=== PATIENT | female | born 1955 | race Caucasian/White ===

== ENCOUNTER 2023-04-14 11:08 | Day surgery (SDC) | payer BC, MEDICARE ==
[~2023-04-14 11:08] MED LIST: Lactated Ringers 1,000 ML IV SCH
[2023-04-14] MEDS ORDERED: fentaNYL 100 MCG/2 ML SDV ONE (12:23)
[2023-04-14] MEDS ORDERED: Propofol 200 MG/20 ML SDV ONE ×2 (12:23→12:53)
== END 2023-04-14 14:00 | disposition home or self-care (01) ==
LOC: VM.SDS 11:08
PROVIDERS: ATTEND Surgery
DX: Z12.11 Encounter for screening for malignant neoplasm of colon (principal); J30.9 Allergic rhinitis, unspecified; Z98.890 Other specified postprocedural states
CPT/HCPCS: 00812; J2704; J3010; J7120